=== PATIENT | female | born 1995 | race Caucasian/White ===

== ENCOUNTER 2017-02-21 20:11 | Emergency (ER) | payer OTHER ==
[2017-02-21 20:22] VITALS: BP 132/88
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
[2017-02-21 20:53] LABS: Hematocrit 39.1 % (37.0-47.0); Hemoglobin 13.4 gm/dL (12.5-16.0); Mean Cell Volume 79.6 fl (78-100); Mean Corpuscular Hemoglobin 27.3 pg (27-31); Mean Corpuscular Hgb Conc 34.3 g/dl (32-36); Mean Platelet Volume 9.1 fl (6.0-9.5); Neutrophil # 5.3 K/mm3 (1.3-6.0); Neutrophil % 67.5 % (42-75.0); Platelet Count 244 K/mm3 (150-450); Red Blood Count 4.91 M/mm3 (4.2-5.4); Red Cell Distribution Width 13.3 % (11.5-14.0); White Blood Count 7.8 K/mm3 (4.0-10.5)
[2017-02-21 21:14] LABS: ALT 19 U/L (19-67); AST 15 U/L (0-48); Albumin * 4.1 gm/dl (3.4-5.0); Alkaline Phosphatase * 53 U/L (50-170); Anion Gap 12.2 mmol/L (6.8-13.8); BUN/Creatinine Ratio 16.1 (9.0-21.6); Bilirubin, Total 0.3 mg/dL (0.0-1.1); Blood Urea Nitrogen 14 mg/dL (3-23); Ca. Corrected For Albumin 8.4 mg/dL (8.4-10.2); Calcium * 8.8 mg/dL (7.9-10.9); Carbon Dioxide 28.5 mmol/L (24-32.6); Chloride 103 mmol/L (97-106); Glucose * 104 mg/dL (70-110); Potassium 3.7 mmol/L (3.4-4.6); Sodium 140 mmol/L (132-142); TSH * 0.467 uIU/mL (0.358-3.74); Total Protein 8.1 gm/dL (6.2-8.2); Troponin I Less than 0.017 ng/ml (0.00-0.10)
[2017-02-21] MEDS ORDERED: diphenhydrAMINE HCL 50 MG/ML VIAL IM ONE (21:21)
[2017-02-21] MEDS ORDERED: KETOROLAC TROMETHAMINE 60 MG/2 ML VIAL IM ONE ×2 (21:21→21:25)
[2017-02-21] MEDS ORDERED: METOCLOPRAMIDE HCL 5 MG/ML VIAL IM ONE (21:22)
[2017-02-21] MEDS ORDERED: METOCLOPRAMIDE HCL 5 MG/ML VIAL ONE (21:25)
[2017-02-21] MEDS ORDERED: diphenhydrAMINE HCL 50 MG/ML VIAL ONE (21:25)
[2017-02-21] MEDS ORDERED: NALBUPHINE HCL 20 MG/ML AMPUL IM ONE (21:54)
[2017-02-21] MEDS ORDERED: NALBUPHINE HCL 20 MG/ML AMPUL ONE (21:56)
== END 2017-02-21 22:21 | disposition home or self-care (01) ==
LOC: ER 20:11
DX: G43.109 Migraine with aura, not intractable, without status migrainosus (principal); E03.9 Hypothyroidism, unspecified